=== PATIENT | female | born 1995 | race Caucasian/White ===

== ENCOUNTER 2018-09-22 14:05 | Emergency (ER) | payer OTHER ==
[2018-09-22] MEDS ORDERED: SODIUM CHLORIDE 1,000 ML IV STA ×2 (14:38→17:14)
[2018-09-22] MEDS ORDERED: ACETAMINOPHEN 1000 MG/100 ML VIAL (NON FORMULARY) IVPB ONE (14:38)
--- NOTE | 2018-09-22 15:13 | PDOC ---
History of Present Illness - General Stated Complaint: anxiety Time Seen by Provider: 09/22/18 14:21 History Source: Patient Exam Limitations: No Limitations - History of Present Illness Initial Comments: 09/22/18 15:13 23 y/o female presents to the ED with c/o syncope x 2 with standing. First ocurrence happened while drinking soda this am and then her boyfriend heard a thump in the kitchen and found her unresponsive for approx 20 seconds and with a blank statre after being aroused. He denies eye rolling, tremors, or incontinence. 2nd occurrence was immediateley after when pt attempted to take a shower and the boyfriend caught her and liad her on the floor. EMS was called because pt was c/o weakness and lower back pain. Pt denies recent illness, urinary complaints, diarrhea, change in diet, or fever. Timing/Duration: intermittent Severity: mild Associated Symptoms: reports: syncope, weakness Past History - Travel Traveled outside of the country in the last 30 days: No Close contact w/someone who was outside of country & ill: No - Past Medical History Allergies/Adverse Reactions: Allergies Allergy/AdvReac Type Severity Reaction Status Date / Time No Known Allergies Allergy Verified 09/22/18 15:27 Home Medications: Ambulatory Orders Escitalopram Oxalate [Lexapro -] 5 mg PO DAILY 09/22/18 Hydroxyzine HCl 25 mg PO PRN 09/22/18 - Suicide/Smoking/Psychosocial Hx Patient Lives Alone: No Lives with/in: spouse/SO Review of Systems - Review of Systems Able to Perform ROS?: Yes Constitutional: Yes: Weakness HEENTM: No: Symptoms Reported Respiratory: No: Symptoms reported Cardiac (ROS): Yes: Syncope. No: Chest Pain ABD/GI: No: Nausea, Poor Appetite, Poor Fluid Intake, Vomiting Musculoskeletal: Yes: Back Pain Integumentary: No: Symptoms Reported Neurological: Yes: Weakness, Dizziness Endocrine: No: Symptoms Reported Hematologic/Lymphatic: No: Symptoms Reported *Physical Exam - Physical Exam General Appearance: Yes: Nourished, Appropriately Dressed. No: Apparent Distress HEENT: positive: EOMI, LACHELLE, TMs Normal, Pharynx Normal (dry). negative: Pale Conjunctivae Neck: positive: Supple Respiratory/Chest: positive: Lungs Clear, Normal Breath Sounds. negative: Respiratory Distress, Accessory Muscle Use Cardiovascular: positive: Regular Rhythm, Regular Rate. negative: Murmur Gastrointestinal/Abdominal: positive: Soft. negative: Tenderness Musculoskeletal: negative: CVA Tenderness, Vertebral Tenderness (paraspinous at l2-5 level) Extremity: positive: Normal Capillary Refill. negative: Pedal Edema Integumentary: positive: Normal Color, Warm, Moist Neurologic: positive: Normal Mood/Affect, Motor Strength 5/5 (moving all extremeties actively) Heart Score/ECG Review - ECG Intrepretation Rhythm: Regular Rhythm (nsr at 64,st elevation noted in lead II, v3 and v6 likely from early repolarization.) ED Treatment Course - LABORATORY CBC & Chemistry Diagram: 09/22/18 15:24 09/22/18 15:24 - RADIOLOGY Radiology Studies Ordered: Category Date Time Status HEAD CT WITHOUT CONTRAST [CT] Stat CT Scan 09/22/18 14:38 Ordered Medical Decision Making - Medical Decision Making 09/22/18 15:04 CC: syncope x 2 with standing, no witnessed s/s of seizure activity, no drug hx Exam: pt appears weak, orthostatic with sitting, pt unable to tolerate standing due to dizziness Plan: labs, urine, ivf, iv tylenol, and head ct 09/22/18 18:46 Laboratory Tests 09/22/18 09/22/18 09/22/18 15:24 15:24 17:45 WBC 7.2 Hgb 14.2 Hct 42.0 Sodium 141 Potassium 4.2 Chloride 108 H Carbon Dioxide 27 Anion Gap 6 L BUN 12 Creatinine 0.8 Random Glucose 86 Calcium 8.8 Magnesium 2.3 Total Bilirubin 0.4 AST 19 ALT 32 Alkaline Phosphatase 84 Total Protein 7.0 Albumin 3.5 Lipase 151 Urine Blood 2+ H Urine Nitrite Negative Urine Bilirubin Negative Ur Leukocyte Esterase Trace Urine WBC (Auto) 39 Urine RBC (Auto) 9 Urine Casts (Auto) 33 U Epithel Cells (Auto) 13.8 Urine Bacteria (Auto) 790.8 Pt disclosed she started taking celexa 10mg daily and vistaril 25mg as needed which she states caused fatigue and mild dizziness but last dose taken was sunday night. Pt states is feeling much better with no complaints presently ambulating throughout the ED. Pt states no urinary complaints and will send u cx. pt aware if Ucx + , will receive phone call. Head ct - for acute findings *DC/Admit/Observation/Transfer Diagnosis at time of Disposition: Orthostatic dizziness, Syncope - Discharge Dispostion Disposition: HOME Condition at time of disposition: Improved - Referrals Referrals: Marybel Cazares MD [Primary Care Provider] - - Patient Instructions Printed Discharge Instructions: DI for Syncope in Adults (Fainting), DI for Orthostatic Hypotension Additional Instructions: At this time your labs and Head Ct -. Urine showed some bacteria but since you have no urinary complaints, will send cx and you will be called if it is +. Otherwise drink plenty of fluids, get up in increments, and avoid taking Vistaril and continue with Celexa - Post Discharge Activity
[2018-09-22] MEDS ORDERED: ACETAMINOPHEN INJECTION 100 ML IVPB ONE (15:14)
[2018-09-22 15:36] LABS: BASO % 0.1 % (0-2.0); EOS % 0.9 % (0-4.5); HEMOGLOBIN 14.2 GM/dL (10.7-15.3); LYMPH % 23.1 % (8-40); MCH 32.1 pg (25.7-33.7); MCHC 33.9 g/dl (32.0-36.0); MEAN CELL VOLUME 94.7 fl (80-96); MONO % 6.5 % (3.8-10.2); NEUT % 69.4 % (42.8-82.8); PLATELET COUNT 289 K/MM3 (134-434); RBC 4.44 M/mm3 (3.60-5.2); RDW 13.9 % (11.6-15.6); WHITE BLOOD COUNT 7.2 K/mm3 (4.0-10.0)
[2018-09-22 15:46] VITALS: BMI 29.2
[2018-09-22 16:01] LABS: ALBUMIN 3.5 g/dl (3.4-5.0); ALK PHOS 84 U/L (45-117); ANION GAP 6 MMOL/L (8-16); BILIRUBIN,TOTAL 0.4 mg/dL (0.2-1); BLOOD UREA NITROGEN 12 mg/dL (7-18); CALCIUM 8.8 mg/dL (8.5-10.1); CHLORIDE 108 mmol/L (98-107); CO2 27 mmol/L (21-32); CREATININE 0.8 mg/dL (0.55-1.3); GLUCOSE,RANDOM 86 mg/dL (74-106); LIPASE 151 U/L (73-393); MAGNESIUM 2.3 mg/dL (1.8-2.4); POTASSIUM 4.2 mmol/L (3.5-5.1); SGOT/AST 19 U/L (15-37); SGPT/ALT 32 U/L (13-61); SODIUM 141 mmol/L (136-145)
[2018-09-22 18:05] LABS: HCG,QUALITATIVE URINE Negative
[2018-09-22 18:06] LABS: EPI CELLS 13.8 /HPF (0-5/HPF); URINE APPEARANCE CLOUDY; URINE BACTERIA 790.8 /hpf (NEGATIVE); URINE BILIRUBIN NEGATIVE (NEGATIVE); URINE CASTS 33 /lpf (0-8); URINE COLOR YELLOW; URINE GLUCOSE (UA) NEGATIVE (NEGATIVE); URINE KETONE NEGATIVE (NEGATIVE); URINE LEUK ESTERASE TRACE (NEGATIVE); URINE NITRITE NEGATIVE (NEGATIVE); URINE PROTEIN NEGATIVE (NEGATIVE); URINE RBC 9 /hpf (0-4); URINE WBC 39 /hpf (0-5)
[2018-09-22 18:09] VITALS: TEMP 98.1
[2018-09-22 19:06] VITALS: BP 98/71; PULSE 67
--- NOTE | 2018-09-23 10:58 | EKG ---
Test Reason : Blood Pressure : / mmHG Vent. Rate : 064 BPM Atrial Rate : 064 BPM P-R Int : 122 ms QRS Dur : 082 ms QT Int : 432 ms P-R-T Axes : 010 059 068 degrees QTc Int : 445 ms NORMAL SINUS RHYTHM WITH SINUS ARRHYTHMIA ST ELEVATION, CONSIDER EARLY REPOLARIZATION BORDERLINE ECG NO PREVIOUS ECGS AVAILABLE Confirmed by HEDY BAIG MD ([id number]) on 09/23/2018 10:58:04 AM Referred By: Confirmed By:HEDY BAIG MD
== END 2018-09-22 19:07 | disposition home or self-care (01) ==
LOC: JER 14:05
PROC: 3E0337Z Introduction of Electrolytic and Water Balance Substance into Peripheral Vein, Percutaneous Approach (ICD-10-PCS; principal; 2018-09-22)
DX: I95.1 Orthostatic hypotension (principal)
CPT/HCPCS: 36415; 70450-TC; 80053; 81003; 83690; 83735; 84703; 85025; 87086; 93005; 93010; 96360; 96361; 99283-25; J7030

== ENCOUNTER → 2019-07-10 | Day surgery (SDC) | payer OTHER | END | disposition home or self-care (01) | LOC: JRADUS-SUR 10:09 | PROVIDERS: ATTEND Physician Assistant Surgical | PROC: BU081ZZ Plain Radiography of Uterus and Fallopian Tubes using Low Osmolar Contrast (ICD-10-PCS; principal; 2019-07-10) | DX: Z31.41 Encounter for fertility testing (principal) | CPT/HCPCS: 58340; 74740-TC-FY; 76000-TC-FY; 84703 ==

== ENCOUNTER 2021-05-08 20:30 | Inpatient (IN) | payer OTHER ==
[2021-05-08 21:07] LABS: BASO % 0.3 % (0-2.0); EOS % 0.4 % (0-4.5); HEMATOCRIT 33.6 % (32.4-45.2); LYMPH % 29.5 % (8-40); MCH 27.5 pg (25.7-33.7); MCHC 32.7 g/dl (32.0-36.0); MEAN CELL VOLUME 84.1 fl (80-96); MEAN PLT VOLUME 8.8 fl (7.5-11.1); MONO % 6.3 % (3.8-10.2); NEUT % 63.5 % (42.8-82.8); PLATELET COUNT 266 10^3/uL (134-434); RDW 16.7 % (11.6-15.6); WHITE BLOOD COUNT 9.1 K/mm3 (4.0-10.0)
[2021-05-08 21:16] LABS: INR 0.9 (0.83-1.09); PROTHROMBIN TIME (PATIENT) 10.5 SEC (9.7-13.0)
[2021-05-08 21:18] LABS: ACTIVATED PTT 24.5 SECONDS (25.2-36.5)
[2021-05-08 21:42] LABS: CALCIUM 8.6 mg/dL (8.5-10.1)
[2021-05-08] MEDS ORDERED: ELECTROLYTE-148 SOLN 1,000 ML IV SCH (21:45)
[2021-05-08] MEDS ORDERED: OXYTOCIN 30 UNITS in 0.9% NS 30 UNIT/500 ML INFUS.BAG IVPB SCH (21:45)
[2021-05-08 21:46] LABS: CREATININE 0.7 mg/dL (0.55-1.3)
[2021-05-08] MEDS ORDERED: AMPICILLIN SODIUM 2 GM VIAL ONE (21:59)
[2021-05-08] MEDS ORDERED: AMPICILLIN - 2 GM in SODIUM CHLORIDE 100 ML IVPB ONE (22:00)
[2021-05-08 22:30] LABS: HIV INTERPRETATION NEGATIVE (NEGATIVE)
[2021-05-08 22:31] VITALS: BMI 32.7
[2021-05-08] MEDS ORDERED: FENTANYL/BUPIVACAINE/NS/PF - PCEA - 50 ML DISP.SYRIN EP ONE (23:31)
[2021-05-08] MEDS ORDERED: FENTANYL/BUPIVACAINE/NS/PF - PCEA - 50 ML DISP.SYRIN EP SCH (23:45)
[2021-05-08] MEDS ORDERED: NALOXONE HCL 0.4 MG/ML VIAL IVPUSH PRN (23:59)
[2021-05-09] MEDS ORDERED: BUPIVACAINE HCL/PF 0.25% (2.5MG/ML) 10 ML VIAL ONE ×4 (00:01→11:08)
[2021-05-09] MEDS ORDERED: AMPICILLIN SODIUM 1 GM VIAL ONE ×5 (01:44→17:13)
[2021-05-09] MEDS: AMPICILLIN - 1 GM in SODIUM CHLORIDE 100 ML IVPB SCH ×5 (01:45→18:00)
[2021-05-09] MEDS ORDERED: OXYTOCIN 30 UNITS in 0.9% NS 30 UNIT/500 ML INFUS.BAG IVPB ONE (01:57)
[2021-05-09] MEDS ORDERED: FENTANYL/BUPIVACAINE/NS/PF - PCEA - 50 ML DISP.SYRIN EP ONE ×4 (03:11→13:58)
[2021-05-09] MEDS ORDERED: PCA PUMP NR ONE (08:43)
[2021-05-09] MEDS ORDERED: METHYLERGONOVINE MALEATE 0.2 MG/1 ML AMP IM PRN (10:42)
[2021-05-09] MEDS ORDERED: ACETAMINOPHEN 325 MG TABLET (FP) PO PRN (10:42)
[2021-05-09] MEDS ORDERED: WITCH HAZEL 50% (TUCKS) 40 PAD/JAR PAD TP PRN (10:42)
[2021-05-09] MEDS ORDERED: OXYTOCIN 20 UNITS in 0.9% NS 20 UNIT/1,000 ML INFUS.BAG IV SCH ×2 (10:45→17:00)
[2021-05-09] MEDS ORDERED: BENZOCAINE 28 GM HEMORRHOIDAL OINTMENT TP PRN (16:54)
[2021-05-09] MEDS ORDERED: BENZOCAINE 20% 57 GM BOTTLE TP PRN (16:54)
[2021-05-09] MEDS ORDERED: OXYTOCIN 20 UNITS in 0.9% NS 20 UNIT/1,000 ML INFUS.BAG IV ONE ×2 (17:05→18:15)
[2021-05-09] MEDS ORDERED: LIDOCAINE HCL/PF 2% SDV 5ML VIAL ONE (18:15)
[2021-05-09] MEDS ORDERED: morphine SULFATE/PF 1 MG/2 ML (2cc Syringe - QUVA) ONE ×2 (18:30)
[2021-05-09] MEDS ORDERED: ONDANSETRON 4 MG/2 ML VIAL ONE (18:31)
[2021-05-09 19:17] LABS: CORD HCO3 17.2 mmHg (20-29); CORD HCO3 20.3 mmHg (20-29); CORD PCO2 86.2 mmHg (30-78)
[2021-05-09 19:20] LABS: CORD pH 6.919 (7.14-7.44); CORD pH 6.986 (7.14-7.44)
[2021-05-09] MEDS: IBUPROFEN 800 MG/8 ML IJ IVPB PRN (22:49)
[2021-05-10] MEDS: AMPICILLIN - 1 GM in SODIUM CHLORIDE 100 ML IVPB SCH (00:47)
[2021-05-10] MEDS: FERROUS SO4 325 MG TABLET (FP) PO SCH ×3 (00:47→18:53)
[2021-05-10] MEDS ORDERED: ONDANSETRON 4 MG/2 ML VIAL ONE (02:38)
[2021-05-10] MEDS ORDERED: ONDANSETRON 4 MG/2 ML VIAL IVPB PRN (04:30)
[2021-05-10] MEDS: IBUPROFEN 800 MG/8 ML IJ IVPB PRN (06:10)
[2021-05-10 07:53] LABS: BASO % 0.1 % (0-2.0); HEMATOCRIT 28.9 % (32.4-45.2); HEMOGLOBIN 9.5 GM/dL (10.7-15.3); LYMPH % 8.9 % (8-40); MCH 27.6 pg (25.7-33.7); MCHC 32.9 g/dl (32.0-36.0); MEAN CELL VOLUME 83.9 fl (80-96); MEAN PLT VOLUME 8.7 fl (7.5-11.1); MONO % 6.1 % (3.8-10.2); NEUT % 84.9 % (42.8-82.8); PLATELET COUNT 248 10^3/uL (134-434); RBC 3.44 M/mm3 (3.60-5.2); RDW 16.8 % (11.6-15.6); WHITE BLOOD COUNT 13.4 K/mm3 (4.0-10.0)
[2021-05-10] MEDS ORDERED: oxyCODONE HCL 5 MG TABLET PO PRN (08:00)
[2021-05-10] MEDS: PRENATAL VITAMINS W/ FOLIC ACID TABLET (FP) PO SCH (09:19)
[2021-05-10] MEDS ORDERED: BISACODYL 10 MG SUPP.RECT RC PRN (10:42)
[2021-05-10] MEDS: IBUPROFEN 600 MG TABLET (FP) PO PRN ×2 (15:14→22:05)
[2021-05-10] MEDS: SIMETHICONE 80 MG TAB.CHEW (FP) PO PRN (15:14)
[2021-05-10] MEDS ORDERED: SENNOSIDES/DOCUSATE COMBO (SENNA PLUS) TABLET (UD) PO PRN (22:00)
[2021-05-11] MEDS: guaiFENesin 200 MG/10 ML 10 ML UNIT-DOSE CUPS PO PRN ×4 (00:30→19:32)
[2021-05-11] MEDS: SIMETHICONE 80 MG TAB.CHEW (FP) PO PRN ×3 (08:11→19:31)
[2021-05-11] MEDS: FERROUS SO4 325 MG TABLET (FP) PO SCH ×2 (08:11→16:29)
[2021-05-11] MEDS: oxyCODONE HCL 5 MG TABLET PO PRN ×2 (08:11→23:41)
[2021-05-11] MEDS: PRENATAL VITAMINS W/ FOLIC ACID TABLET (FP) PO SCH (09:15)
[2021-05-11] MEDS: IBUPROFEN 600 MG TABLET (FP) PO PRN ×2 (11:33→19:32)
[2021-05-12 07:44] LABS: BASO % 0.2 % (0-2.0); HEMATOCRIT 27.2 % (32.4-45.2); HEMOGLOBIN 8.8 GM/dL (10.7-15.3); LYMPH % 18.9 % (8-40); MCHC 32.5 g/dl (32.0-36.0); MEAN PLT VOLUME 8.2 fl (7.5-11.1); MONO % 6.3 % (3.8-10.2); NEUT % 73.6 % (42.8-82.8); PLATELET COUNT 271 10^3/uL (134-434); RBC 3.28 M/mm3 (3.60-5.2); RDW 16.9 % (11.6-15.6); WHITE BLOOD COUNT 9.8 K/mm3 (4.0-10.0)
[2021-05-12] MEDS: IBUPROFEN 600 MG TABLET (FP) PO PRN (08:21)
[2021-05-12] MEDS: FERROUS SO4 325 MG TABLET (FP) PO SCH (08:21)
[2021-05-12] MEDS: SIMETHICONE 80 MG TAB.CHEW (FP) PO PRN (08:21)
[2021-05-12] MEDS: guaiFENesin 200 MG/10 ML 10 ML UNIT-DOSE CUPS PO PRN (09:35)
[2021-05-12] MEDS: PRENATAL VITAMINS W/ FOLIC ACID TABLET (FP) PO SCH (09:40)
[2021-05-12 11:24] VITALS: BP 122/72; PULSE 89; TEMP 98.7
== END 2021-05-12 14:45 | disposition home or self-care (01) | DRG 540 ==
LOC: JLDR 20:30 → J3W 05-09 21:12
PROVIDERS: ADMIT Obstetrics & Gynecology; ATTEND Obstetrics & Gynecology
PROC: 10D00Z1 Extraction of Products of Conception, Low, Open Approach (ICD-10-PCS; principal; 2021-05-09)
DX: O76 Abnormality in fetal heart rate and rhythm complicating labor and delivery (principal); O48.0 Post-term pregnancy; Z3A.40 40 weeks gestation of pregnancy; Z37.0 Single live birth
CPT/HCPCS: 36415; 36600; 80048; 82803; 85025; 85461; 85610; 85730; 86780; 86850; 86900; 86901; 87389; 87804; 87807; 88307-TC; C9803; U0003; U0005

== ENCOUNTER 2022-08-16 06:20 | Inpatient (IN) | payer OTHER ==
[2022-08-16] MEDS ORDERED: ELECTROLYTE-148 SOLN 500 ML IV SCH (06:45)
[2022-08-16 07:20] VITALS: BMI 32.3
[2022-08-16 07:20] LABS: BASO % 0.1 % (0-2.0); EOS % 0.6 % (0-4.5); HEMATOCRIT 28.4 % (32.4-45.2); HEMOGLOBIN 9.2 GM/dL (10.7-15.3); LYMPH % 31.5 % (8-40); MCH 23.4 pg (25.7-33.7); MCHC 32.4 g/dl (32.0-36.0); MEAN CELL VOLUME 72.1 fl (80-96); MEAN PLT VOLUME 7.4 fl (7.5-11.1); NEUT % 61.8 % (42.8-82.8); PLATELET COUNT 337 10^3/uL (134-434); RBC 3.93 M/mm3 (3.60-5.2); RDW 18.7 % (11.6-15.6); WHITE BLOOD COUNT 7.4 K/mm3 (4.0-10.0)
[2022-08-16] MEDS ORDERED: CITRIC ACID/SODIUM CITRATE 30 ML UNIT-DOSE CUP PO ONE (07:30)
[2022-08-16 07:31] LABS: INR 0.94 (0.83-1.09); PROTHROMBIN TIME (PATIENT) 10.9 SEC (9.7-13.0)
[2022-08-16 07:36] LABS: CALCIUM 8.2 mg/dL (8.5-10.1)
[2022-08-16 07:37] LABS: BLOOD UREA NITROGEN 9.8 mg/dL (7-18)
[2022-08-16 07:40] LABS: CREATININE 0.7 mg/dL (0.55-1.3)
[2022-08-16] MEDS ORDERED: IBUPROFEN 600 MG TABLET (FP) PO PRN (07:50)
[2022-08-16] MEDS ORDERED: ONDANSETRON 4 MG/2 ML VIAL IVPUSH PRN (07:50)
[2022-08-16] MEDS ORDERED: morphine SULFATE/PF 1 MG/2 ML (2cc Syringe - QUVA) EP ONE (07:50)
[2022-08-16] MEDS ORDERED: ACETAMINOPHEN 325 MG TABLET (FP) PO PRN (07:50)
[2022-08-16] MEDS ORDERED: SODIUM CHLORIDE 0.9% P/F 10 ML VIAL IJ ONE (07:56)
[2022-08-16] MEDS ORDERED: morphine SULFATE (PF) 1 MG/2 ML SYRINGE ONE (07:56)
[2022-08-16] MEDS ORDERED: ceFAZolin SODIUM 1 GM VIAL ONE (07:56)
[2022-08-16] MEDS: ELECTROLYTE-148 SOLN 1,000 ML IV SCH (08:00)
[2022-08-16] MEDS ORDERED: PHENYLEPHRINE HCL 10 MG/1 ML SINGLE DOSE VIAL ONE (08:14)
[2022-08-16 08:27] LABS: SYPHILIS W/ RPR CONF NON-REACTIVE (NONREACTIVE)
[2022-08-16] MEDS ORDERED: OXYTOCIN 10 UNITS/ML VIAL ONE ×2 (08:30→08:37)
[2022-08-16] MEDS ORDERED: METOCLOPRAMIDE HCL INJECTION 10 MG/2 ML VIAL ONE (08:33)
[2022-08-16] MEDS ORDERED: ONDANSETRON 4 MG/2 ML VIAL ONE (08:33)
[2022-08-16] MEDS ORDERED: FENTANYL CITRATE/PF 50 MCG/ML VIAL ONE (08:46)
[2022-08-16] MEDS ORDERED: MIDAZOLAM HCL 2 MG/2 ML SINGLE DOSE VIAL ONE (08:47)
[2022-08-16 08:55] LABS: HIV INTERPRETATION NEGATIVE (NEGATIVE)
[2022-08-16] MEDS ORDERED: METHYLERGONOVINE MALEATE 0.2 MG/1 ML AMP IM PRN (09:14)
[2022-08-16] MEDS: OXYTOCIN 20 UNITS in 0.9% NS 20 UNIT/1,000 ML INFUS.BAG IV SCH ×2 (11:00→23:09)
[2022-08-16] MEDS: FERROUS SO4 325 MG TABLET (FP) PO SCH ×2 (12:15→23:24)
[2022-08-16] MEDS: ACETAMINOPHEN 1000 MG/100 ML BAG IVPB SCH ×2 (12:24→17:28)
[2022-08-16] MEDS: IBUPROFEN 800 MG/8 ML IJ IVPB SCH ×2 (13:49→19:44)
[2022-08-16] MEDS: SIMETHICONE 80 MG TAB.CHEW (FP) PO PRN (19:43)
[2022-08-16] MEDS ORDERED: oxyCODONE HCL 5 MG TABLET PO PRN (21:14)
[2022-08-16 23:26] VITALS: RESP 18
[2022-08-17] MEDS: IBUPROFEN 800 MG/8 ML IJ IVPB SCH ×3 (01:00→12:02)
[2022-08-17] MEDS: ACETAMINOPHEN 1000 MG/100 ML BAG IVPB SCH ×3 (04:44→06:14)
[2022-08-17] MEDS: SIMETHICONE 80 MG TAB.CHEW (FP) PO PRN ×3 (04:44→21:12)
[2022-08-17] MEDS: ELECTROLYTE-148 SOLN 1,000 ML IV SCH (07:40)
[2022-08-17 08:03] LABS: BASO % 0.1 % (0-2.0); EOS % 0.3 % (0-4.5); HEMATOCRIT 24.8 % (32.4-45.2); HEMOGLOBIN 7.7 GM/dL (10.7-15.3); LYMPH % 12.3 % (8-40); MCH 22.8 pg (25.7-33.7); MCHC 31.1 g/dl (32.0-36.0); MEAN CELL VOLUME 73.3 fl (80-96); MEAN PLT VOLUME 7.4 fl (7.5-11.1); MONO % 4.1 % (3.8-10.2); NEUT % 83.2 % (42.8-82.8); PLATELET COUNT 284 10^3/uL (134-434); RBC 3.39 M/mm3 (3.60-5.2); RDW 18.6 % (11.6-15.6); WHITE BLOOD COUNT 11.3 K/mm3 (4.0-10.0)
[2022-08-17] MEDS ORDERED: BISACODYL 10 MG SUPP.RECT RC PRN (09:14)
[2022-08-17] MEDS: FERROUS SO4 325 MG TABLET (FP) PO SCH ×2 (09:22→21:12)
[2022-08-17] MEDS: OXYTOCIN 20 UNITS in 0.9% NS 20 UNIT/1,000 ML INFUS.BAG IV SCH (09:24)
[2022-08-17] MEDS: oxyCODONE HCL 5 MG TABLET PO PRN ×2 (11:59→23:54)
[2022-08-17] MEDS: IBUPROFEN 600 MG TABLET (FP) PO PRN ×2 (15:33→21:13)
[2022-08-17] MEDS: ACETAMINOPHEN 325 MG TABLET (FP) PO PRN (16:44)
[2022-08-18] MEDS: SIMETHICONE 80 MG TAB.CHEW (FP) PO PRN ×4 (03:32→20:40)
[2022-08-18] MEDS: ACETAMINOPHEN 325 MG TABLET (FP) PO PRN ×2 (03:32→13:06)
[2022-08-18] MEDS: ELECTROLYTE-148 SOLN 1,000 ML IV SCH (08:12)
[2022-08-18] MEDS: IBUPROFEN 600 MG TABLET (FP) PO PRN ×3 (08:15→23:48)
[2022-08-18] MEDS: FERROUS SO4 325 MG TABLET (FP) PO SCH ×2 (09:10→21:57)
[2022-08-18] MEDS: DOCUSATE SODIUM 100 MG CAPSULE (FP) PO SCH ×2 (13:31→21:57)
[2022-08-18] MEDS ORDERED: ACETAMINOPHEN 500 MG TABLET (FP) PO PRN (21:00)
[2022-08-19 07:12] LABS: BASO % 0.2 % (0-2.0); EOS % 0.7 % (0-4.5); HEMATOCRIT 23.2 % (32.4-45.2); HEMOGLOBIN 7.6 GM/dL (10.7-15.3); LYMPH % 22.1 % (8-40); MCH 23.9 pg (25.7-33.7); MCHC 32.9 g/dl (32.0-36.0); MEAN CELL VOLUME 72.6 fl (80-96); MEAN PLT VOLUME 7.8 fl (7.5-11.1); PLATELET COUNT 344 10^3/uL (134-434); RBC 3.19 M/mm3 (3.60-5.2); RDW 18.6 % (11.6-15.6); WHITE BLOOD COUNT 9.7 K/mm3 (4.0-10.0)
[2022-08-19] MEDS: oxyCODONE HCL 5 MG TABLET PO PRN (08:03)
[2022-08-19] MEDS: SIMETHICONE 80 MG TAB.CHEW (FP) PO PRN (08:04)
[2022-08-19] MEDS: DOCUSATE SODIUM 100 MG CAPSULE (FP) PO SCH (09:09)
[2022-08-19] MEDS: FERROUS SO4 325 MG TABLET (FP) PO SCH (09:09)
[2022-08-19 10:31] VITALS: BP 110/60; PULSE 80; TEMP 98.2
== END 2022-08-19 12:10 | disposition home or self-care (01) | DRG 540 ==
LOC: JLDR 06:20 → J3W 10:50
PROVIDERS: ADMIT Obstetrics & Gynecology; ATTEND Obstetrics & Gynecology
PROC: 10D00Z1 Extraction of Products of Conception, Low, Open Approach (ICD-10-PCS; principal; 2022-08-16)
DX: O34.219 Maternal care for unspecified type scar from previous cesarean delivery (principal); Z3A.39 39 weeks gestation of pregnancy; Z37.0 Single live birth
CPT/HCPCS: 36415; 80048; 85025; 85610; 85730; 86780; 86850; 86870; 86900; 86901; 86902; 87389; 88307-TC; 94010; C9803-CS; U0003; U0005

== ENCOUNTER 2024-01-21 12:37 | Emergency (ER) | payer OTHER ==
[2024-01-21 12:46] VITALS: BP 109/72; PULSE 88; RESP 18; TEMP 97.8; BMI 25.2
[2024-01-21] MEDS ORDERED: ACETAMINOPHEN 500 MG TABLET (FP) ONE (13:44)
[2024-01-21] MEDS ORDERED: AMOX TR/POT CLAV 875MG/125MG TABLETS (FP) ONE (13:44)
[2024-01-21] MEDS: AMOX TR/POT CLAV 875MG/125MG TABLETS (FP) PO ONE (13:47)
[2024-01-21] MEDS: ACETAMINOPHEN 500 MG TABLET (FP) PO ONE (13:47)
== END 2024-01-21 14:38 | disposition home or self-care (01) ==
LOC: JERFT 12:37
DX: R51.9 Headache, unspecified (principal); R07.0 Pain in throat; K02.9 Dental caries, unspecified
CPT/HCPCS: 87651; 99283-25